=== PATIENT | male | born 1965 | race Caucasian/White ===

== ENCOUNTER → 2017-06-13 | Outpatient (CLI) | payer MEDICAID ==
[~2017-06-13] MED LIST: IOPAMIDOL (ISOVUE-300) 100 ML BTL ONE
== END ==
LOC: CIMAGING 10:01
PROVIDERS: ATTEND Family Medicine
DX: R31.9 Hematuria, unspecified (principal); J43.2 Centrilobular emphysema; F17.290 Nicotine dependence, other tobacco product, uncomplicated
CPT/HCPCS: 74178-PO; Q9967

== ENCOUNTER 2017-10-24 08:39 | Observation (INO) | payer MEDICAID ==
[2017-10-24] MEDS ORDERED: diphenhydrAMINE 25 MG CAP PO ONE ×2 (08:43→09:10)
[2017-10-24] MEDS ORDERED: BACITRACIN IRRIGATION/NS 50,000 UNITS/1,000 ML BTL IRR ONE (08:43)
[2017-10-24] MEDS ORDERED: DIAZEPAM 5 MG TAB PO ONE (08:43)
[2017-10-24] MEDS ORDERED: ceFAZolin 2 GM/DEXTROSE 100 ML IV ONE (08:43)
[2017-10-24] MEDS ORDERED: NS 1,000 ML IV ONE (08:43)
--- NOTE | 2017-10-24 09:05 | PDPROPOC ---
Sedation Plan of Care Sedation Plan of Care: vital signs stable, mental status noted, patient educated of risks, benefits, alternatives, patient can tolerate sedation ASA Classification: ASA 2 Planned drugs: fentanyl, midazolam Mallampati Score: Class 1 Mallampati Reference Image: Patient passed 3-3-2 rule?: Yes
--- NOTE | 2017-10-24 09:06 | CPEKG ---
Heart Rate: 71 RR Interval: 845 P-R Interval: 164 QRSD Interval: 78 QT Interval: 384 QTC Interval: 418 P [place]: 75 QRS [place]: -33 T Wave [place]: 67 EKG Severity - OTHERWISE NORMAL ECG - EKG Impression: SINUS RHYTHM EKG Impression: LEFT AXIS DEVIATION EKG Impression: LOW VOLTAGE IN FRONTAL LEADS Electronically Signed By: Ryder Maki 25-Oct-2017 12:13:23
--- NOTE | 2017-10-24 09:06 | PDHPUP ---
History & Physical Update H&P update statement: This history and physical update is based on an assessment of the patient which was completed after admission or registration (within 24 hours), but prior to the surgery/procedure. H&P update: H&P reviewed & patient examined, no change in patient's condition since H&P completed
[2017-10-24] MEDS ORDERED: DIAZEPAM 5 MG TAB ONE (09:11)
[2017-10-24 09:32] LABS: INR 0.97 (0.83-1.16); PROTIME(PATIENT) 13.1 SEC (12.0-15.0)
[2017-10-24 09:40] LABS: PLATELET COUNT 304 10^3/uL (150-400)
[2017-10-24] MEDS ORDERED: fentaNYL 100 MCG/2 ML INJ ONE ×2 (10:14→10:51)
[2017-10-24] MEDS ORDERED: IOPAMIDOL (ISOVUE-300) 50 ML VIAL ONE (10:14)
[2017-10-24] MEDS ORDERED: MIDAZOLAM 2 MG/2 ML VIAL ONE ×2 (10:14→10:51)
[2017-10-24] MEDS ORDERED: LIDOCAINE 1% 300 MG/30 ML SDV ONE (10:14)
[2017-10-24] MEDS ORDERED: LIDO/EPI 1% **for epidural** 30 ML SDV ONE (10:15)
[2017-10-24] MEDS ORDERED: BUPIVACAINE 0.5% 30 ML SDV ONE (10:15)
--- NOTE | 2017-10-24 11:30 | PDCTREPORT ---
Cardiothoracic Procedure Rpt Cardiothoracic Procedure Report: Procedure: Implantation of a dual-chamber pacemaker. Indications: Recurrent syncope with 6 sec pauses/sinus arrest. After obtaining informed consent patient brought to cardiac catheterization lab in the fasting state. The left subclavian fossa was sterilely prepped and draped. Venogram was performed. Using a 10 blade an incision was made in the christy pectoral region. Using a combination of sharp blunt dissection pacemaker pocket was created and a bacitracin soaked sponge was placed in the pocket. Using 18 gauge percutaneous needle under fluoroscopy subclavian vein was entered x2. Guidewires were advanced into the right heart. Using 6 English safety sheaths leads were advanced in the RV apex and right atrial appendage. Appropriate sensitivities and thresholds were obtained leads were secured to the fascia after tearing the sheaths away using 0 Ethibond x2. Under fluoroscopy with deep breaths there was significant loss of slack involving the RV lead. Slack was added and the RV lead was then Re secured to the fascia. Bacitracin soaked sponge was removed from the pocket. It was copiously irrigated. The generator was delivered to the field and attached to the leads confirming serial numbers. The entire system was coiled into the pocket. It was checked under fluoroscopy. Standard three-layer closure was performed. Pressure dressings applied is taken to recovery for continued care Final diagnosis: Syncope with sinus arrest status post permanent pacemaker insertion. The device is a [employer] [facility] 2272 Serial #[id number]. Right atrial lead is a tendril SDS 2088TC 46 serial number [id number] Right ventricular lead tendril SDS 2 088 PC 52 serial number [id number] Right atrial sensing is 2.9 mV. Capture was at 0.4 volts with a pulse with a 0.5 milliseconds impedance was 408 Ohms. RV capture was at 0.9 volts with a pulse with a 0.5 millisecond sensing was 3.5 mV impedance was 774 Ohms. 10 volt stimulation revealed no phrenic nerve stimulation in both leads. Conclusions successful implantation of a dual-chamber pacemaker. Patient Problems: Problems Problem Status Onset Sinus arrest Acute Syncope Acute
--- NOTE | 2017-10-24 11:58 | CPEKG ---
Heart Rate: 70 RR Interval: 857 P-R Interval: 192 QRSD Interval: 82 QT Interval: 420 QTC Interval: 454 QRS [place]: 10 T Wave [place]: 52 EKG Severity - ABNORMAL ECG - EKG Impression: ATRIAL-PACED COMPLEXES EKG Impression: MULTIFORM VENTRICULAR PREMATURE COMPLEXES EKG Impression: LOW VOLTAGE IN FRONTAL LEADS Electronically Signed By: Ryder Maki 25-Oct-2017 12:13:11
[2017-10-24] MEDS ORDERED: ALBUTEROL 60 PUFFS/8 GM MDI IH PRN (13:27)
[2017-10-24] MEDS ORDERED: LORazepam 2 MG/ML INJ IVP PRN (15:41)
[2017-10-24] MEDS: KETOROLAC 15 MG/1 ML SDV IVP SCH ×2 (16:02→23:28)
[2017-10-24] MEDS: levETIRAcetam 500 MG TAB PO SCH (23:28)
[2017-10-25] MEDS: KETOROLAC 15 MG/1 ML SDV IVP SCH ×3 (00:03→14:44)
[2017-10-25] MEDS ORDERED: LEVOTHYROXINE 112 MCG TAB PO SCH (06:00)
[2017-10-25] MEDS: levETIRAcetam 500 MG TAB PO SCH (08:29)
[2017-10-25] MEDS ORDERED: ASPIRIN 81 MG CHEWABLE TAB PO SCH (09:00)
[2017-10-25] MEDS ORDERED: NS 1,000 ML IV ONE (09:31)
[2017-10-25] MEDS ORDERED: BACITRACIN IRRIGATION/NS 50,000 UNITS/1,000 ML BTL IRR ONE (09:31)
--- NOTE | 2017-10-25 09:35 | SOAPPROG ---
SOAP Progress Note Assessment/Plan: Assessment: 1. Syncope status post permanent pacemaker 2. Agitation with Keppra *3. Lead dislodgement Impression: Interrogation this morning shows a right ventricular lead to be dislodged. He had a tumultuous night with significant anger issues. His family feels this might be related to Keppra. Pain was relatively well controlled. Plan for lead revision this morning with discharge and clinical follow-up 10/25/17 09:33 Subjective: Rough night. Significant difficulty with gown and arm sling. No chest pain or shortness of breath. Significant incisional discomfort he felt was related to the muscle. Objective: Vital Signs Temp Pulse Resp BP Pulse Ox 36.8 C 67 18 104/62 95 10/25/17 08:09 10/25/17 08:09 10/25/17 08:09 10/25/17 08:09 10/25/17 08:09 Laboratory Results 10/24/17 09:15 10/24/17 09:15 PT 13.1 SEC (12.0-15.0) 10/24/17 09:15 INR 0.97 (0.83-1.16) 10/24/17 09:15 Physical Exam - Physical Exam General Appearance: alert, mild distress Neck: supple Respiratory: lungs clear Cardiac/Chest: normal peripheral pulses, regular rate, rhythm, No edema, No gallop, No JVD Abdomen: non-tender Back: Normal inspection Skin: normal color, No rash Extremities: normal range of motion ICD10 Worksheet Patient Problems: Problems Problem Status Onset Sinus arrest Acute Syncope Acute
[2017-10-25] MEDS ORDERED: LIDOCAINE 1% 300 MG/30 ML SDV ONE (09:43)
[2017-10-25] MEDS ORDERED: LIDO/EPI 1% **for epidural** 30 ML SDV ONE (09:43)
[2017-10-25] MEDS ORDERED: fentaNYL 100 MCG/2 ML INJ ONE ×2 (09:43→10:13)
[2017-10-25] MEDS ORDERED: MIDAZOLAM 2 MG/2 ML VIAL ONE ×4 (09:43→11:25)
[2017-10-25] MEDS ORDERED: BUPIVACAINE 0.5% 30 ML SDV ONE (09:43)
[2017-10-25] MEDS ORDERED: CEFAZOLIN 1 GM/DEXTROSE/50 ML BAG IV ONE (09:46)
[2017-10-25] MEDS ORDERED: DOXYCYCLINE 100 MG PREPACK#2 BTL TAKEHOME ONE (11:18)
--- NOTE | 2017-10-25 11:33 | PDCTREPORT ---
Cardiothoracic Procedure Rpt Cardiothoracic Procedure Report: Procedure: Right ventricular lead revision with replacement of the RV lead. Indications: Lead dislodgement with malfunction of the right ventricular lead. After obtaining informed consent patient was brought back to the cardiac catheterization lab. The new pacemaker site was sterilely prepped and draped and infiltrated with bupivacaine. 10 blade was used to incise the newly placed sutures. The wound was debrided. The device was delivered to the field. The set screws were loosened and the device was removed. A bacitracin soaked sponge was placed in the pocket. Attempts at repositioning the right ventricular lead were made but there were inappropriate sensing. The guidewire would not advance beyond the socket of the RV lead. It was felt to be dysfunctional. An incision was made in the insulation. Using a micropuncture kit a new sheath was placed in the subclavian vein. Using a substitution technique. A new right ventricular lead was delivered to the field and advanced into the right ventricular septum. Appropriate sensitivities and thresholds were confirmed and the sheath was removed. The lead was secured to the fascia using 0 Ethibond x3. An extra suture was placed in the atrial lead. Bacitracin soaked sponge was removed. The pocket was copiously irrigated. The device was then require old into the pocket. Three-layer closure was used. Pressure dressing was applied the patient is taken to recovery for continued care. The new right ventricular lead is a tendril SDS 2088 PC 52 serial number [id number]. Right ventricular sensing was 8 mV with a pulse with of 0.5 millisecond capture was at 0.4 volts. Impedance was 600 Ohms. Conclusions: Successful right ventricular lead revision with replacement of the RV lead. He will be given doxycycline 100 mg p.o. Twice daily x2. Patient be discharged home with follow-up in 1 week. Patient Problems: Problems Problem Status Onset Sinus arrest Acute Syncope Acute
[2017-10-25] MEDS ORDERED: DOXYCYCLINE HYCLATE 100 MG CAP/TAB PO SCH (12:00)
--- NOTE | 2017-10-25 12:04 | CPEKG ---
Heart Rate: 60 RR Interval: 1000 P-R Interval: 204 QRSD Interval: 86 QT Interval: 452 QTC Interval: 452 QRS [place]: -21 T Wave [place]: 53 EKG Severity - ABNORMAL ECG - EKG Impression: ATRIAL-PACED RHYTHM EKG Impression: BORDERLINE LEFT AXIS DEVIATION Electronically Signed By: Ryder Maki 25-Oct-2017 12:12:55
[2017-10-25 13:33] VITALS: BP 129/84
--- NOTE | 2017-10-25 14:57 | PDDCSUM ---
Discharge Summary Discharge Summary: Admission date: October 24, 2017 Discharge date: 10/25/2017 Admission diagnosis: Syncope with 5.6 sinus arrest Discharge diagnosis: Successful implantation of a dual-chamber pacemaker complicated by RV lead dislodgement and malfunction. Seizure disorder. Query medication related change in mental status. Clinical follow-up: Wound check 1 week [facility]. 30 day pacemaker interrogation Follow-up Dr. Tafoya associated Neurology to discuss need for Keppra, current dosage. Procedures during this hospitalization: Implantation of a dual-chamber pacemaker. RV lead replacement. Consultation obtained by phone from Dr. Tafoya regarding Keppra. Medications: Please see the attached discharge sheet. Of note capture dosed reduced to 250 mg twice daily in consultation with Neurology Hospital course: Patient was admitted to the hospital electively disorder felt to be 2nd etiology best and 5.6 second pauses seen on Holter. Patient underwent procedure without complications postoperative chest x-ray revealed no pneumothorax with good lead placement. Overnight the patient became agitated. On interrogation the following morning the right ventricular lead was found to be dislodged. In discussion with the patient's family he is been noted to have significant mood change since beginning the Keppra and they were concerned about considering this medication. He was brought back to the cardiac catheterization lab. His right ventricular lead was attempted to be repositioned but the lead itself was functioning inappropriately with inability to pass the stylus. A new right ventricular lead was placed without complication. This was performed without need for a repeat stick. He was up ambulating. At the time of discharge physical examination revealed a blood pressure 120/70. His heart rate was pacer site was healed well without ecchymosis erythema or edema. His mood was appropriate with normal affect. Patient will begin doxycycline since we Re in he will have a wound check in 1 week. I did discuss the patient's Keppra dosing with his neurologist, Dr. Tafoya. We agreed to reduce the dose to 250 mg bid with clinical follow up.
[2017-10-25] MEDS ORDERED: LORazepam 1 MG TAB PO PRN (15:02)
--- NOTE | 2017-10-25 15:52 | ASDISCHSUM ---
Discharge Information Plan Status:Home with No Needs Medically Cleared to Leave:10/25/2017 Discharge Date:10/25/2017 CM D/C Disposition:Home, Routine, Self-Care ADT D/C Disposition: Projected Discharge Date:10/25/2017 Transportation at D/C: Discharge Delay Reason: Follow-Up Date:10/25/2017 Discharge Slot: Final Diagnosis: Placement Information Patient Contact Information Contact Name:KANA Relationship:Life Partner Address:[address] [place] [address] Work Phone: City:[place] Alternate Phone: State/Zip Code:[place] [address] Email: Financial Information Financial Class:Medicaid Primary Plan Desc:MEDICAID [facility] [employer] Primary Plan Number:[id number] Secondary Plan Desc: Secondary Plan Number: Assessment Information LACE LACE Length of stay for Answers: 1 day current admission Acuity / Level of Answers: No Care: Did the patient have an inpatient admission? Comorbidities - select Answers: Other Notes: pacer lead revision all that apply # of Emergency department Answers: 1-2 visits in the last 6 months Social determinants Answers: Lack of community resources and/or lack of social support (no pcp, lives alone, transportation, jeff d) Score: 7 Date Signed: 10/25/2017 03:51 PM Electronically Signed By:Ashley Diamond RN Case Management Discharge Plan Note Case Management Discharge Discharge Order Complete? Answers: Yes Patient to Obtain Answers: via Family Medications Transportation Arranged Answers: Family/Friends Family Notified Answers: Yes Notes: here Discharge Comments Notes: 10/25/2017 Case Management Note Pt admitted for sinus arrest and had a pacer lead revision this morning. Provided transportation info on [employer] and [employer]. to transport home. Pt to d/c independent with follow up as directed. Date Signed: 10/25/2017 03:51 PM Electronically Signed By:Ashley Diamond RN Intervention Information Intervention Type:No Admission Order Date of Service:10/24/2017 02:20 PM Patient Type:Observation Staff Member:ISIDRO [place] Susan Hours: Discipline: Severity: Comment:
[2017-10-25] MEDS ORDERED: levETIRAcetam 250 MG TAB PO SCH (21:00)
== END 2017-10-25 15:54 | disposition home or self-care (01) ==
LOC: FCATH 08:39 → F2W 11:52
PROVIDERS: ADMIT Internal Medicine Interventional Cardiology; ATTEND Internal Medicine Interventional Cardiology
DX: I49.5 Sick sinus syndrome (principal); T82.120A Displacement of cardiac electrode, initial encounter; T82.190A Other mechanical complication of cardiac electrode, initial encounter
CPT/HCPCS: 33208; 33216; 33234; 71045; 71046; 93005; G0378; C1785; C1898; J0690; J1200; J1885; J2060; J2250; J3010; Q9967

== ENCOUNTER → 2018-03-27 | Outpatient (CLI) | payer MEDICAID | LOC: FIMAGING 08:41 | PROVIDERS: ATTEND Nurse Practitioner Family | DX: R42 Dizziness and giddiness (principal) ==